=== PATIENT | male | born 2000 | race Caucasian/White ===

== ENCOUNTER 2020-10-12 17:39 | Emergency (ER) | payer OTHER ==
[~2020-10-12 17:39] MED LIST: AMOXICILLIN875 MG PO; MOTRIN600 MG PO; PREDNISONE 20MG20 MG PO; ZOFRAN4 MG PO
[2020-10-12 18:16] LABS: BILIRUBIN NEGATIVE (NEGATIVE); BLOOD NEGATIVE Ery/uL (NEGATIVE); CLARITY CLEAR (CLEAR); COLOR YELLOW (YELLOW); GLUCOSE (U) NORMAL (NORMAL); LEUKOCYTES NEGATIVE Leu/uL (NEGATIVE); NITRITE NEGATIVE (NEGATIVE); PROTEIN NEGATIVE (NEGATIVE); SPECIFIC GRAVITY >=1.030 (1.001-1.030); UROBILINOGEN 0.2 mg/dL (0.2-1.0); pH 5.5 (5.0-9.0)
[2020-10-16 00:08] LABS: CHLAMYDIA TRACHOMATIS, NAA Negative (Negative); NEISSERIA GONORRHOEAE, NAA Negative (Negative)
== END 2020-10-12 21:55 | disposition home or self-care (01) ==
LOC: FER 17:39
PROVIDERS: Emergency Medicine
DX: R30.0 Dysuria (principal); R36.9 Urethral discharge, unspecified; F17.200 Nicotine dependence, unspecified, uncomplicated
CPT/HCPCS: 81003; 87491; 87591; 99283

== ENCOUNTER 2021-09-26 06:54 | Emergency (ER) | payer SELFPAY ==
[2021-09-26 08:26] LABS: BASOPHIL 0.3 % (0-2); EOSINOPHIL 1.1 % (0-5); HCT 43.9 % (42.0-52.0); HGB 15.2 g/dl (13.2-18.0); LYMPHOCYTE 31.5 % (15-48); MCH 31.5 pg (25.0-31.0); MCHC 34.6 g/dL (32.0-36.0); MCV 90.9 fL (78.0-100.0); MONOCYTE 9.5 % (0-12); MPV 11.3 fL (6.0-9.5); NEUTROPHIL 57.3 % (41-80); NRBC 0; PLT 200 K/uL (150-400); RBC 4.83 M/uL (4.70-6.00); RDW 11.9 % (11.5-14.0); WBC 7.1 K/uL (4.0-10.5)
[2021-09-26 08:48] LABS: ALBUMIN 4.6 g/dL (3.4-5.0); ALKALINE PHOSHATASE 65 U/L (46-116); ALT 6 U/L (16-63); AST 17 U/L (15-37); BILIRUBIN - TOTAL 0.4 mg/dL (0.2-1.0); BUN 12 mg/dL (7-18); CHLORIDE 99 mmol/L (98-107); CO2 (BICARBONATE) 26 mmol/L (21-32); GLOBULIN (CALCULATION) 3.5 g/dL; GLUCOSE 93 mg/dL (74-106); POTASSIUM 3.5 mmol/L (3.5-5.1); TOTAL PROTEIN 8.1 g/dL (6.4-8.2)
[2021-09-26 09:42] LABS: BILIRUBIN NEGATIVE (NEGATIVE); BLOOD NEGATIVE Ery/uL (NEGATIVE); CLARITY CLEAR (CLEAR); COLOR YELLOW (YELLOW); GLUCOSE (U) NORMAL (NORMAL); LEUKOCYTES NEGATIVE Leu/uL (NEGATIVE); NITRITE NEGATIVE (NEGATIVE); PROTEIN NEGATIVE (NEGATIVE); UROBILINOGEN 0.2 mg/dL (0.2-1.0)
[2021-09-26 09:53] LABS: AMPHETAMINES NEGATIVE (NEGATIVE); BARBITURATES NEGATIVE (NEGATIVE); ECSTASY (MDMA) NEGATIVE (NEGATIVE); MARIJUANA (THC) POSITIVE (NEGATIVE); METHADONE NEGATIVE (NEGATIVE); OPIATES NEGATIVE (NEGATIVE); OXYCODONE NEGATIVE (NEGATIVE)
[2021-09-26] MEDS ORDERED: PEPCID AC20 MG PO (10:11)
== END 2021-09-26 10:20 | disposition home or self-care (01) ==
LOC: FER 06:54
PROVIDERS: Emergency Medicine
DX: K21.9 Gastro-esophageal reflux disease without esophagitis (principal); F12.10 Cannabis abuse, uncomplicated
CPT/HCPCS: 36415; 80053; 80305; 81003; 84484; 85025; 85379; 93005